=== PATIENT | male | born 1990 | race African-American/Black ===

== ENCOUNTER 2018-06-24 11:14 | Emergency (ER) | payer OTHER ==
[~2018-06-24] VITALS: Ht 190.5 cm; Wt 83.9 kg
[2018-06-24 11:22] VITALS: BP 151/99
== END 2018-06-24 13:53 ==
LOC: ER 11:14 → EEVIPCON 11:14 → ER 13:53
DX: S60.221A Contusion of right hand, initial encounter (principal); K21.9 Gastro-esophageal reflux disease without esophagitis; I10 Essential (primary) hypertension; W22.8XXA Striking against or struck by other objects, initial encounter; Y93.89 Activity, other specified; Y99.8 Other external cause status; Y92.148 Other place in prison as the place of occurrence of the external cause
CPT/HCPCS: 29125; 73130; 73200